=== PATIENT | female | born 1970 | race Caucasian/White ===

== ENCOUNTER 2019-02-22 15:34 | Inpatient (IN) | payer MEDICAID ==
[~2019-02-22] VITALS: Ht 152.4 cm; Wt 81.6 kg
[2019-02-22] MEDS: NACL 0.9% 1,000 ML IV SCH ×2 (04:55→18:57)
[2019-02-22 15:45] VITALS: BP 133/75
--- NOTE | 2019-02-22 15:51 | NUR ---
PT AMB TO BED 10.
--- NOTE | 2019-02-22 16:05 | NUR ---
C/O RUQ ABD PAIN RADIATING TO LLQ 03/14 X 2 DAYS, ACCOMPANIED BY NAUSEA. PT DENIES VOMITING/DIARRHEA. BOWEL SOUNDS PRESENT X4, ABD SOFT/TENDER TO PALPATION AND GUARDED. LBM 02/22/19 AND REGUALR PER PT. BED IN LOW POSITION, SIDE RAIL UP X1.
[2019-02-22] MEDS ORDERED: KETOROLAC 15 MG/ML VIAL IM ONE (16:30)
[2019-02-22] MEDS ORDERED: ONDANSETRON 4 MG/2 ML VIAL IVP ONE (16:30)
--- NOTE | 2019-02-22 16:30 | NUR ---
HAYLEY VANEGAS AT BEDSIDE
[2019-02-22 17:08] LABS: BASOPHILS % (AUTO) 0.2 % (0.0-2.0); EOSINOPHILS % (AUTO) 0.1 % (0.0-4.0); HEMATOCRIT 43.7 % (36-48); HEMOGLOBIN 14.5 g/dL (12.0-16.0); LYMPHOCYTES # (AUTO) 1.1 K/uL (2.5-16.5); LYMPHOCYTES % (AUTO) 11.2 % (20.5-51.1); MEAN CORPUSCULAR HEMOGLOBIN 29 pg (27-31); MEAN CORPUSCULAR HGB CONC 33 g/dL (33-37); MEAN CORPUSCULAR VOLUME 86.3 fL (80-94); MONOCYTES # (AUTO) 0.8 K/uL (0.8-1.0); MONOCYTES % (AUTO) 8.7 % (1.7-9.3); NEUTROPHILS # (AUTO) 7.6 K/uL (1.8-7.7); NEUTROPHILS % (AUTO) 79.8 % (42.2-75.2); PLATELET COUNT (AUTO) 236 K/uL (140-450); RED BLOOD CELL COUNT(AUTO) 5.07 MIL/uL (4.20-5.40); RED CELL DISTRIBUTION WIDTH 14.2 % (11.6-13.7); WHITE BLOOD COUNT (AUTO) 9.6 K/uL (4.8-10.8)
[2019-02-22 17:08] LABS: APPEARANCE,URINE CLEAR (CLEAR); BILIRUBIN,URINE NEGATIVE (NEGATIVE); BLOOD, URINE NEGATIVE (NEGATIVE); COLOR,URINE YELLOW (YELLOW); LEUKOCYTE ESTERASE ,URINE TRACE (NEGATIVE); NITRITE, URINE NEGATIVE (NEGATIVE); UGLUCOSE NEGATIVE (NEGATIVE)
[2019-02-22 17:15] LABS: RBC,URINE 0 /HPF (0-5)
[2019-02-22 17:23] LABS: ALBUMIN 3.8 g/dL (3.4-5.0); ANION GAP 10.8 (8-16); CARBON DIOXIDE 30.1 mmol/L (21-32); CREATININE 0.7 mg/dL (0.6-1.3); TOTAL BILIRUBIN 0.9 mg/dL (0.0-1.0)
[2019-02-22 17:28] LABS: POTASSIUM 2.9 mmol/L (3.5-5.1)
--- NOTE | 2019-02-22 17:30 | NUR ---
PT RESTING IN BED, TALKING WITH DAUGHTER. DENIES NEW NEEDS AT THIS TIME.
[2019-02-22] MEDS ORDERED: POTASSIUM CHLORIDE 40 MEQ, LIDOCAINE MPF 1% - 5 mL VIAL 25 MG in NACL 0.9% 250 ML IV ONE (18:30)
[2019-02-22] MEDS ORDERED: POTASSIUM CHLORIDE 10 MEQ TABER PO ONE (18:30)
[2019-02-22] MEDS ORDERED: LISI10TA11 PO (18:33)
[2019-02-22] MEDS ORDERED: NAPR-54 PO (18:33)
--- NOTE | 2019-02-22 19:16 | NUR ---
Patient will be admitted to care of DR. STARR. Admited to TELEMETRY. Will go to room 105A. Belongings list completed. Report to GAMAL BROWN.
--- NOTE | 2019-02-22 19:35 | NUR ---
RECEIVED FROM ER PER JIMENEZ AWAKE AND ALERT. ACCOMPANIED BY FAMILY MEMBERS. ABLE TO VERBALIZE WELL IN YI. PT. IS INDEPENDENT AND WALKS TO RESTROOM BY HERSELF SEEN BY ME. CALL LIGHT WITH IN REACH AND CARE PLANS FOR THE NIGHT DISCUSSED WITH HER. DX. OF CHOLECYSTITIS . NO PAIN COMPLAINT AT THIS TIME. WITH IVF SITE TO [facility] #20 INFUSING WITH NS BOLUS. RAPID RESPONSE EXPLAINED TO THEM . ENCOURAGED TO CALL FOR ANY HELP SHE MAY NEED. AFEBRILE.
[2019-02-22] MEDS ORDERED: MAGNESIUM HYDROXIDE 2400 MG/30 ML UDC PO PRN (19:55)
[2019-02-22] MEDS ORDERED: HYDROcodone/APAP 7.5/325 MG 1 TAB PO PRN (19:55)
[2019-02-22] MEDS ORDERED: FAMOTIDINE 20 MG/2 ML VIAL IV PRN (19:55)
[2019-02-22] MEDS ORDERED: ACETAMINOPHEN 325 MG TAB PO PRN (19:55)
[2019-02-22] MEDS ORDERED: MORPHINE SULFATE 2 MG/ML SYR IVP PRN (19:55)
[2019-02-22] MEDS ORDERED: DOCUSATE SODIUM 100 MG GELCAP PO PRN (19:55)
[2019-02-22] MEDS ORDERED: LORazepam 2 MG/ML VIAL IM/IVP PRN (19:55)
[2019-02-22] MEDS ORDERED: ONDANSETRON 4 MG/2 ML VIAL IM/IVP PRN (19:55)
[2019-02-22] MEDS ORDERED: BISACODYL 5 MG TABEC PO PRN (19:55)
[2019-02-22 20:11] VITALS: BP 141/87
[2019-02-22 20:58] LABS: PROTHROMBIN TIME 9.4 secs (10.8-13.4)
--- NOTE | 2019-02-22 21:28 | NUR ---
RESIDENT MD IN HERE AND SEEN PT. INFORMED PT. THAT HE HAS TALKED WITH CONSULT SURGEON TO SEE HER. WAITING FOR SURGEON. ON IVF K RIDER AT THIS TIME ORDERED. WATCHED PT. GO RESTROOM TO URINATE AGAIN. INDEPENDENT AND WALKS STRAIGHT. A/O X 4. ENCOURAGED TO CALL IF SHE NEEDS HELP. "OK"
[2019-02-22 22:38] LABS: CHOL/HDL RATIO 1.6 (1-4.5); FREE T4 (FREE THYROXINE) 1.1 ng/dL (0.76-1.46); MAGNESIUM 2.1 mg/dL (1.8-2.4); PHOSPHORUS 2.6 mg/dL (2.5-4.9); THYROID STIMULATING HORMONE 0.63 uIU/mL (0.34-3.74)
--- NOTE | 2019-02-22 22:39 | NUR ---
SURGEON YEVGENIY CAME IN TO SEE PT. AND WAS ABLE TO INFORM PT. OF STATUS. PROVIDED WITH CRACKERS AND APPLE JUICE AT THIS TIME. NO COMPLAINTS OF PAIN AT THIS TIME. CALL LIGHT WITH IN REACH.
[2019-02-22 22:50] LABS: BARBITURATE, URINE NEG. ng/ml (NEG <=200); BENZODIAZEPINE, URINE NEG. ng/mL (NEG <=200); CANNABINOID, URINE NEG. ng/mL (NEG <=50); COCAINE, URINE NEG. ng/mL (NEG <=300); OPIATE, URINE NEG. ng/mL (NEG <=2000); PHENCYCLIDINE SCREEN,URINE NEG. ng/mL (NEG <=25)
[2019-02-23 00:08] VITALS: BP 148/89
--- NOTE | 2019-02-23 03:00 | NUR ---
PT. SLEEPING. NO RESTLESSNESS NOTED. ABLE TO USE CALL LIGHT FOR ANY HELP SHE NEEDS. VERBALIZES WELL.
[2019-02-23] MEDS ORDERED: HYDR12.51 PO (04:20)
[2019-02-23] MEDS ORDERED: HYDROCHLOROTHIAZIDE 25 MG TAB PO SCH (05:00)
[2019-02-23] MEDS ORDERED: cefTRIAXone 1,000 MG VIAL ONE (05:18)
[2019-02-23] MEDS: NACL 0.9% 1,000 ML IV SCH ×3 (05:20→23:46)
[2019-02-23 05:33] VITALS: BP 146/86
[2019-02-23] MEDS: KETOROLAC 30 MG/ML VIAL IVP PRN ×2 (05:39→23:45)
--- NOTE | 2019-02-23 05:40 | NUR ---
BEEN SLEEPING WELL THIS SHIFT. WOKE UP AT THIS TIMIE AND REQUESTED FOR PAIN RELIEVER. MEDICATED WITH TORADOL 30 MG IVP ORDERED BY RESIDENT MD. ABLE TO VERBALIZE NEEDS WELL. PT. AT THIS TIME MEDICAL SURGICAL PT.
--- NOTE | 2019-02-23 06:29 | NUR ---
PT. SLEEPING AT T HIS TIME. WILL ENDORSE TO AM RN FOR CONTINUITY OF CARE.
[2019-02-23 07:13] LABS: ANION GAP 10.7 (8-16); CARBON DIOXIDE 28.2 mmol/L (21-32); CREATININE 0.7 mg/dL (0.6-1.3); POTASSIUM 3.9 mmol/L (3.5-5.1)
[2019-02-23 07:22] LABS: BASOPHILS % (AUTO) 0.3 % (0.0-2.0); EOSINOPHILS # (AUTO) 0.1 K/uL (0-0.4); EOSINOPHILS % (AUTO) 0.8 % (0.0-4.0); HEMATOCRIT 39.4 % (36-48); LYMPHOCYTES # (AUTO) 1.3 K/uL (2.5-16.5); LYMPHOCYTES % (AUTO) 17.2 % (20.5-51.1); MEAN CORPUSCULAR HEMOGLOBIN 29 pg (27-31); MEAN CORPUSCULAR HGB CONC 33 g/dL (33-37); MEAN CORPUSCULAR VOLUME 87.5 fL (80-94); MONOCYTES # (AUTO) 0.9 K/uL (0.8-1.0); MONOCYTES % (AUTO) 11.3 % (1.7-9.3); NEUTROPHILS # (AUTO) 5.5 K/uL (1.8-7.7); NEUTROPHILS % (AUTO) 70.4 % (42.2-75.2); PLATELET COUNT (AUTO) 201 K/uL (140-450); RED BLOOD CELL COUNT(AUTO) 4.51 MIL/uL (4.20-5.40); RED CELL DISTRIBUTION WIDTH 14.4 % (11.6-13.7); WHITE BLOOD COUNT (AUTO) 7.8 K/uL (4.8-10.8)
--- NOTE | 2019-02-23 07:40 | NUR ---
RECEIVED BEDSIDE REPORT FROM PAD EXTRACTOR TENDER RNLEANDRO. PATIENT IS RESTING IN BED, NO C/O PAIN AT THIS TIME. PATIENT IV IS INFUSING WELL TO LEFT AC 20 GAUGE CATHETER. NO SIGNS OF DISTRESS ON RA. BED LOW, CALL LIGHT IN REACH. WILL CONTINUE TO MONITOR.
[2019-02-23 08:00] VITALS: BP 101/63
[2019-02-23] MEDS: LISINOPRIL 10 MG TAB PO SCH (08:00)
--- NOTE | 2019-02-23 08:01 | NUR ---
PATIENT HAS BEEN SCREENED AND CATEGORIZED MODERATE NUTRITION RISK. PATIENT WILL BE SEEN WITHIN 3-5 DAYS OF ADMISSION. 02/25/[address]
[2019-02-23] MEDS: LACTOBACILLUS RHAMNOSUS GG 1 EACH CAP PO SCH (08:21)
--- NOTE | 2019-02-23 08:28 | NUR ---
ADMINISTERED SCHEDULED MEDICATIONS. HELD LISINOPRIL DUE TO BP 101/63. WILL RECHECK BP IN 4 HOURS AND GIVE IF NEEDED. PATIENT TOLERATED WELL. PATIENT STATES THAT PAIN IS MUCH LOWER NOW AFTER THE 0600 DOSE OF TORADOL. BED IS LOW, CALL LIGHT IN REACH. FAMILY AT BEDSIDE. WILL CONTINUE TO MONITOR.
--- NOTE | 2019-02-23 09:45 | NUR ---
PATIENT RESTING IN BED, PATIENT ATE A SMALL AMOUNT OF OATMEAL BUT EXPERIENCED ABDOMINAL DISCOMFORT AND STOPPED. FAMILY AT BEDSIDE. BED LOW, CALL LIGHT IN REACH. WILL CONTINUE TO MONITOR.
--- NOTE | 2019-02-23 12:15 | NUR ---
PATIENT RESTING IN BED, FAMILY AT BEDSIDE. IV INFUSING WELL TO LEFT AC 20 GAUGE. NO DISTRESS ON RA, BED LOW, CALL LIGHT IN REACH. PATIENT DOES HAVE 4/10 ABDOMINAL PAIN BUT CANNOT HAVE OPIOIDS FOR PENDING HIDA SCAN. PATIENT IS AWARE AND STATES THAT PAIN IS TOLERABLE AT THIS TIME.
--- NOTE | 2019-02-23 13:10 | NUR ---
PATIENT OFF UNIT FOR HIDA SCAN. ESCORTED BY SAMPLE WEAVER VIA WHEELCHAIR. WILL UPDATE WHEN PATIENT RETURNS TO UNIT.
[2019-02-23] MEDS ORDERED: MORPHINE SULFATE 2 MG/ML SYR ONE (14:29)
--- NOTE | 2019-02-23 14:32 | NUR ---
ADMINISTERED 2MG MORPHINE IV IN NUCLEAR MEDICINE FOR HIDA SCAN PURPOSE. PATIENT TOLERATED MEDICATION WELL. PATIENT REMAINED IN NUCLEAR MEDICINE. ADVISED ADMISSIONS REPRESENTATIVE KT TO CALL IF PATIENT EXPERIENCES ANY NAUSEA. NO C/O OF NAUSEA REPORTED WITHIN 10 MINUTES OF ADMINISTRATION.
[2019-02-23] MEDS ORDERED: MORPHINE SULFATE 2 MG/ML SYR IVP SCH (15:00)
--- NOTE | 2019-02-23 15:30 | NUR ---
PATIENT RETURNED TO UNIT, AMBULATED TO BED FROM WHEELCHAIR WITH STEADY GAIT. C/O MILD ABD PAIN IN RIGHT UPPER QUADRANT. PATIENT STATES PAIN IS TOLERABLE. BED IS LOW, CALL LIGHT IN REACH. IV IS RECONNECTED, PATIENT ABLE TO HAVE ICE CHIPS, BUT NO FOOD PENDING ABD CT SCAN WITH ORAL AND IV CONTRAST.
[2019-02-23 16:00] VITALS: BP 116/67
[2019-02-23 16:34] LABS: ALBUMIN 3.1 g/dL (3.4-5.0); ANION GAP 9.4 (8-16); CARBON DIOXIDE 29.3 mmol/L (21-32); CREATININE 0.7 mg/dL (0.6-1.3); POTASSIUM 3.7 mmol/L (3.5-5.1)
--- NOTE | 2019-02-23 17:15 | NUR ---
PATIENT RESTING IN BED WITH FAMILY AT BEDSIDE. BED LOW, CALL LIGHT IN REACH. PAIN PRESENT BUT TOLERABLE AT THIS TIME. OFFERED TORADOL, PATIENT WANTS TO WAIT. NO SIGNS OF DISTRESS.
--- NOTE | 2019-02-23 19:35 | NUR ---
ENDORSED PATIENT TO INTELLIGENCE MANAGER RN IN STABLE CONDITION.
--- NOTE | 2019-02-23 19:36 | NUR ---
REPORT TAKEN FROM AM RN. NUCLEAR MEDICINE CALLED FOR FAX SENT IN HERE : [facility] HEPATOBILIARY RESULT. SHOWED TO RESIDENT MD MARQUEZ . AWARE. WAITING FOR CT ABD./PELVIS PROCEDURE TO BE DONE. WILL CALL MD VUONG WHEN TEST AND RESULT IS IN FOR CT REQUESTED. DAUGHTER AT BEDSIDE AND NPO STATUS AT THIS TIME TOO RT CT ABD/PELVIS TEST. PT. AWARE OF IT. CALL LIGHT WITH IN REACH. NO SOB. DENIES PAIN AT THIS TIME. CARE PLANS FOR THE NIGHT DISCUSSED WITH THEM. IVF SITE INTACT AND NO INFILTRATION NOTED.
--- NOTE | 2019-02-23 22:03 | NUR ---
PT. AT THIS TIME TAKING ORAL CONTRAST FOR CT ABD/PELVIS PROVIDED BY REPAIR OPERATOR ARVIN AND EXPLAINED TO PT. REASON FOR IT. "OK" IVF SITE INTACT AND NO INFILTRATION. GOOD BLOOD RETURN.
--- NOTE | 2019-02-23 23:38 | NUR ---
SLEEPING. NO RESTLESSNESS NOTED.
--- NOTE | 2019-02-23 23:54 | NUR ---
PT. WOKE UP AND REQUESTED FOR PAIN RELIEVER. ABLE TO VERBALIZE NEEDS WELL. MEDICATED REQUESTED. PT. IVF SITE INTACT AND NO INFILTRATION S/S. CALL LIGHT WITH IN REACH.
[2019-02-23 23:56] VITALS: BP 140/80
--- NOTE | 2019-02-24 00:17 | NUR ---
PT. WHEELED OUT OF THE UNIT AT THIS TIME FOR CT SCAN ABD/PELVIS ORDERED. AWAKE AND ALERT.
--- NOTE | 2019-02-24 02:17 | NUR ---
CALLED MD/SURGEON YEVGENIY TO REPORT RE: CT ABDOMEN/PELVIS W/ CONTRAST RESULT HE REQUESTED FROM AM RN SOON RESULT OUT 2 X. NO ANSWER. INFORMED CHARGE NURSE ABOUT IT. WILL TRY AGAIN LATER. PT. SLEEPING AT THIS TIME.
--- NOTE | 2019-02-24 02:53 | NUR ---
CALLED DR VUONG AGAIN . NO ANSWER. CHARGE NURSE AWARE.
--- NOTE | 2019-02-24 03:25 | NUR ---
Checked on pt. sleeping well. No restlessness at this time. Call light with in reach.
--- NOTE | 2019-02-24 04:33 | NUR ---
PT. AWAKE AT THIS TIME AND ASSISTED TO RESTROOM TO URINATE. A/O X4. NO COMPLAINTS OF PAIN.
[2019-02-24 06:03] LABS: ANION GAP 12.1 (8-16); CARBON DIOXIDE 26.4 mmol/L (21-32); CREATININE 0.7 mg/dL (0.6-1.3); POTASSIUM 3.5 mmol/L (3.5-5.1)
[2019-02-24 06:13] LABS: MAGNESIUM 2.1 mg/dL (1.8-2.4); PHOSPHORUS 4.1 mg/dL (2.5-4.9)
[2019-02-24 07:00] LABS: PROTHROMBIN TIME 9.7 secs (10.8-13.4)
[2019-02-24 07:11] LABS: BASOPHILS % (AUTO) 0.2 % (0.0-2.0); EOSINOPHILS # (AUTO) 0.1 K/uL (0-0.4); EOSINOPHILS % (AUTO) 1.3 % (0.0-4.0); HEMATOCRIT 38.2 % (36-48); HEMOGLOBIN 12.6 g/dL (12.0-16.0); LYMPHOCYTES # (AUTO) 1.4 K/uL (2.5-16.5); LYMPHOCYTES % (AUTO) 23.3 % (20.5-51.1); MEAN CORPUSCULAR HEMOGLOBIN 29 pg (27-31); MEAN CORPUSCULAR HGB CONC 33 g/dL (33-37); MEAN CORPUSCULAR VOLUME 86.9 fL (80-94); MONOCYTES # (AUTO) 0.6 K/uL (0.8-1.0); MONOCYTES % (AUTO) 10.5 % (1.7-9.3); NEUTROPHILS # (AUTO) 3.9 K/uL (1.8-7.7); NEUTROPHILS % (AUTO) 64.7 % (42.2-75.2); PLATELET COUNT (AUTO) 202 K/uL (140-450); RED CELL DISTRIBUTION WIDTH 14.4 % (11.6-13.7); WHITE BLOOD COUNT (AUTO) 6.1 K/uL (4.8-10.8)
--- NOTE | 2019-02-24 07:24 | NUR ---
RECEIVED BEDSIDE REPORT FORM CHAPERONE RNLEANDRO. PATIENT SLEEPING, VISIBLE CHEST RISE, NO SIGNS OF DISTRESS ON RA. IV INFUSING AT 100 ML/HR TO LEFT AC 20 GAUGE CATHETER. BED IS LOW, CALL LIGHT IN REACH. WILL CONTINUE TO MONITOR.
--- NOTE | 2019-02-24 07:25 | NUR ---
ENDORSED TO THE NEXT RN FOR CONTINUITY OF CARE AWAKE AND ALERT. BEEN NPO SINCE MIDNIGHT.
[2019-02-24 08:00] VITALS: BP 116/75
[2019-02-24] MEDS: LISINOPRIL 10 MG TAB PO SCH (08:00)
--- NOTE | 2019-02-24 08:10 | NUR ---
VITALS STABLE, PRE-OP CHECKLIST COMPLETE. PATIENT ALERT AND ORIENTED, NO SIGNS OF DISTRESS ON RA. BP IS IN NORMAL RANGE AND HAS BEEN FOR 2 DAYS. PATIENT STATED SHE HAS HER BLOOD PRESSURE CHECKED REGULARLY AND HAS NEVER HAD HIGH BLOOD PRESSURE UNTIL THE DAY SHE SOUGHT TREATMENT FOR SEVER ABDOMINAL PAIN. NOW THAT PAIN IS CONTROL BLOOD PRESSURE IS WITHIN NORMAL LIMITS. HELD 0900 DOSE OF LISINOPRIL AND HYDROCHLOROTHIAZIDE. WILL INFORM DOCTOR THAT PATIENT HAS NOT HAD RECURRENT HIGH BLOOD PRESSURE. PATIENT TO SHOWER BEFORE SURGERY. PROVIDED TOWELS, GOWN AND SUPPLIES. ESCORTED PATIENT TO SHOWER. PATIENT AMBULATED WITH STEADY GAIT. WILL CONTINUE TO MONITOR.
[2019-02-24] MEDS: HYDROCHLOROTHIAZIDE 25 MG TAB PO SCH (08:46)
[2019-02-24] MEDS: LIDOCAINE 1% 500 MG/50 ML VIAL ONE ×2 (09:15→12:25)
[2019-02-24] MEDS: BUPIVACAINE-MPF 0.25% 30 ML VIAL INJ ONE ×2 (09:16→12:26)
[2019-02-24] MEDS: LACTOBACILLUS RHAMNOSUS GG 1 EACH CAP PO SCH (09:45)
--- NOTE | 2019-02-24 09:45 | NUR ---
PATIENT OFF UNIT FOR PROCEDURE. WILL RESUME CARE WHEN PATIENT RETURNS TO UNIT.
[2019-02-24] MEDS ORDERED: HYDROmorphone PFS 2 MG/ML SYR ONE (10:12)
[2019-02-24] MEDS ORDERED: fentaNYL 0.05 MG/ML VIAL ONE (10:12)
[2019-02-24] MEDS ORDERED: ONDANSETRON 4 MG/2 ML VIAL ONE (10:25)
[2019-02-24] MEDS ORDERED: ceFAZolin 1,000 MG VIAL ONE (10:25)
[2019-02-24] MEDS ORDERED: PHENYLEPHRINE 10 MG/ML VIAL ONE (10:25)
[2019-02-24] MEDS ORDERED: ROCURONIUM 50 MG/5 ML VIAL IV ONE (10:25)
[2019-02-24] MEDS ORDERED: GLYCOPYRROLATE 0.2 MG/ML VIAL ONE (10:25)
[2019-02-24] MEDS ORDERED: KETOROLAC 30 MG/ML VIAL ONE (10:25)
[2019-02-24] MEDS ORDERED: SUCCINYLCHOLINE CHLORIDE 200 MG/10 ML VIAL IVP ONE (10:25)
[2019-02-24] MEDS ORDERED: PROPOFOL 200 MG/20 ML VIAL IV ONE (10:25)
[2019-02-24] MEDS ORDERED: DESFLURANE 240 ML BTL INH ONE (10:25)
[2019-02-24] MEDS: NACL 0.9% 1,000 ML IV SCH ×2 (10:55→23:15)
[2019-02-24] MEDS ORDERED: HYDROmorphone 1 MG/ML AMP IVP PRN (12:20)
--- NOTE | 2019-02-24 13:31 | NUR ---
PATIENT BACK FROM OR. PATIENT IS STATUS POST LAPAROSCOPIC CHOLECYSTECTOMY. PATIENT VITALS ARE STABLE ON 2L O2 NC. FAMILY IS AT BEDSIDE. PATIENT DENIES PAIN AND IS BREATHING UNLABORED. BED IS LOW, CALL LIGHT IS IN REACH. WILL MONITOR CLOSELY.
[2019-02-24] MEDS ORDERED: CYCLOBENZAPRINE 10 MG TAB PO SCH (13:43)
--- NOTE | 2019-02-24 14:30 | NUR ---
VITALS REMAIN STABLE. BED LOW, CALL LIGHT IN REACH. PATIENT SATING 94% ON 2L O2 NC.
[2019-02-24 16:00] VITALS: BP 112/63
--- NOTE | 2019-02-24 16:00 | NUR ---
VITALS STABLE, PATIENT STILL DROWSY FROM OPERATION. PATIENT AWAKES EASILY. O2 SATURATION IS 93% ON 2L O2 NC. BED IS LOW, CALL LIGHT IN REACH, FAMILY AT BEDSIDE. WILL CONTINUE TO MONITOR.
[2019-02-24] MEDS: CYCLOBENZAPRINE 10 MG TAB PO SCH (18:32)
[2019-02-24] MEDS: PIPERACILLIN/TAZOBACTAM 3.375 GM in DEXTROSE 5% 50 ML IV SCH ×2 (18:33→23:15)
--- NOTE | 2019-02-24 18:45 | NUR ---
ADMINISTERED SCHEDULE MEDICATIONS, PATIENT TOLERATED WELL BED LOW, PATIENT AWAKE AND ORIENTED. BED LOW CALL LIGHT IN REACH NO SIGNS OF DISTRESS ON 2L O2 NC.
--- NOTE | 2019-02-24 19:29 | NUR ---
ENDORSED PATIENT TO TELEVISION PRODUCTION ASSISTANT RNLOY IN STABLE CONDITION.
--- NOTE | 2019-02-24 19:30 | NUR ---
RECEIVED REPORT FROM AM SHIFT RN TAWNYA FOR PT'S CONTINUITY OF CARE. PATIENT IS LYING DOWN IN BED, AWAKE, ALERT, ORIENTED X 4, FAMILY MEMBERS AT BEDSIDE, WITH NO SIGNS OF DISTRESS. PT IS ON 2L VIA NC, HAS LEFT AC 20G, DENIES PAIN AT THIS TIME. EXPLAINED TO PT LABEL CUTTER ROUTINE, PT AND FAMILY MEMBERS VERBALIZED UNDERSTANDING.
[2019-02-24] MEDS: SIMETHICONE 80 MG TAB.CHEW PO SCH (21:07)
--- NOTE | 2019-02-24 21:07 | NUR ---
ADMINISTERED SCHEDULED PO MEDICATION ORDERED. ASSISTED PT TO RESTROOM, PT TOLERATED MEDICATION AND ACTIVITY WELL. WILL CONTINUE TO MONITOR PT.
--- NOTE | 2019-02-24 22:53 | NUR ---
MADE ROUNDS. PATIENT LYING DOWN ASLEEP, WITH NO SIGNS OF DISTRESS. WILL CONTINUE TO MONITOR PT.
[2019-02-24] MEDS: KETOROLAC 30 MG/ML VIAL IVP PRN (23:13)
--- NOTE | 2019-02-24 23:15 | NUR ---
HUNG IV ABX, AND NEW NS AT 100ML/HR, ORDERED. PATIENT C/O ABD PAIN 01/11, ADMINISTERED IV PUSH PAIN MEDICATION ORDERED. PT TOLERATED THEM WELL. VS CHECKED AND CHARTED. WILL CONTINUE TO MONITOR PT.
[2019-02-25] VITALS: BP 118/69
--- NOTE | 2019-02-25 01:30 | NUR ---
MADE ROUNDS. PT LYING DOWN, ASLEEP, WITH NO SIGNS OF DISTRESS. WILL CONTINUE TO MONITOR PT.
--- NOTE | 2019-02-25 03:40 | NUR ---
MADE ROUNDS. PT LYING DOWN WITH NO SIGNS OF DISTRESS. WILL CONTINUE TO MONITOR PT.
[2019-02-25] MEDS: PIPERACILLIN/TAZOBACTAM 3.375 GM in DEXTROSE 5% 50 ML IV SCH ×2 (05:13→11:27)
--- NOTE | 2019-02-25 05:13 | NUR ---
ADMINISTERED IV ABX ORDERED. PT LYING DOWN, WOKE UP, DENIES ANY PAIN AT THIS TIME. WILL CONTINUE TO MONITOR PT.
--- NOTE | 2019-02-25 06:35 | NUR ---
PATIENT'S IV ALARM WAS ON, ASSISTED PT TO RESTROOM. PT TOLERATED ACTIVITY WELL. PT REPORTS OF HAVING FLATUS, AND DENIES ANY PAIN AT THIS TIME. GAVE APPLE JUICE REQUESTED. PT IS ON ROOM AIR, AND IN STABLE CONDITION. WILL ENDORSE TO AM SHIFT RN FOR PT'S CONTINUITY OF CARE.
[2019-02-25] MEDS: NACL 0.9% 1,000 ML IV SCH (06:55)
[2019-02-25] MEDS ORDERED: IBUP-2213 PO (06:59)
[2019-02-25] MEDS ORDERED: CIPR500T4 PO (06:59)
[2019-02-25] MEDS ORDERED: HYDR-5122 PO (06:59)
[2019-02-25] MEDS ORDERED: LACT10CA1 PO (06:59)
--- NOTE | 2019-02-25 07:30 | NUR ---
RECEIVED BEDSIDE REPORT FROM GAMAL GRANADO. PT STABLE, AWAKE, ALERT AND ORIENTED X4. NO SIGNS OF DISTRESS NOTED. DENIES PAIN OR SOB. NO REDNESS, SWELLING, OR INFLAMMATION NOTED ON IV SITE. CALL SAVAGE WITHIN REACH. BED IN LOWEST POSITION. SAFETY MEASURES IN PLACE. PLAN OF CARE REVIEWED.
[2019-02-25 07:32] LABS: BASOPHILS % (AUTO) 0.1 % (0.0-2.0); HEMATOCRIT 34.6 % (36-48); HEMOGLOBIN 11.3 g/dL (12.0-16.0); LYMPHOCYTES # (AUTO) 0.7 K/uL (2.5-16.5); LYMPHOCYTES % (AUTO) 8.4 % (20.5-51.1); MEAN CORPUSCULAR HEMOGLOBIN 28 pg (27-31); MEAN CORPUSCULAR HGB CONC 33 g/dL (33-37); MEAN CORPUSCULAR VOLUME 86.9 fL (80-94); MONOCYTES # (AUTO) 0.7 K/uL (0.8-1.0); NEUTROPHILS # (AUTO) 7.3 K/uL (1.8-7.7); NEUTROPHILS % (AUTO) 83.5 % (42.2-75.2); PLATELET COUNT (AUTO) 210 K/uL (140-450); RED BLOOD CELL COUNT(AUTO) 3.98 MIL/uL (4.20-5.40); RED CELL DISTRIBUTION WIDTH 14.3 % (11.6-13.7); WHITE BLOOD COUNT (AUTO) 8.7 K/uL (4.8-10.8)
[2019-02-25 08:00] VITALS: BP 138/84
[2019-02-25 08:03] LABS: ANION GAP 12.6 (8-16); CARBON DIOXIDE 27.2 mmol/L (21-32); CREATININE 0.7 mg/dL (0.6-1.3); POTASSIUM 3.8 mmol/L (3.5-5.1)
[2019-02-25 08:20] LABS: MAGNESIUM 2.1 mg/dL (1.8-2.4); PHOSPHORUS 3.5 mg/dL (2.5-4.9)
[2019-02-25] MEDS: LISINOPRIL 10 MG TAB PO SCH (08:58)
[2019-02-25] MEDS: HYDROCHLOROTHIAZIDE 25 MG TAB PO SCH (08:59)
[2019-02-25] MEDS: SIMETHICONE 80 MG TAB.CHEW PO SCH (09:00)
[2019-02-25] MEDS: CYCLOBENZAPRINE 10 MG TAB PO SCH (09:03)
[2019-02-25] MEDS: LACTOBACILLUS RHAMNOSUS GG 1 EACH CAP PO SCH (09:03)
[2019-02-25] MEDS: KETOROLAC 30 MG/ML VIAL IVP PRN (09:04)
--- NOTE | 2019-02-25 09:10 | NUR ---
CHECKED BP, 139/79, HR 79. ADMINISTERED ALL SCHEDULED MEDICATIONS AND PRN TORADOL FOR C/O 6/10 ABDOMINAL PAIN, PT TOLERATED WELL. NO OTHER NEEDS AT THIS TIME. FAMILY AT THE BEDSIDE. INSTRUCTED PT TO AMBULATE IN THE HALLWAYS PER TOLERANCE, PT VERBALIZED UNDERSTANDING. WILL CONTINUE TO MONITOR.
--- NOTE | 2019-02-25 11:29 | NUR ---
ADMINISTERED SCHEDULED ZOSYN, PT TOLERATED WELL. NO OTHER NEEDS AT THIS TIME. FAMILY AT THE BEDSIDE.
--- NOTE | 2019-02-25 13:20 | NUR ---
PT STABLE, AMBULATING IN THE HALLWAYS WITH STEADY GAIT. PT REPORTS PASSING GAS BUT NO BOWEL MOVEMENT. DR FINLEY AWARE.
--- NOTE | 2019-02-25 15:20 | NUR ---
PT STABLE, RESTING IN BED. FAMILY AT THE BEDSIDE. WILL CONTINUE TO MONITOR.
--- NOTE | 2019-02-25 16:40 | NUR ---
D/C INSTRUCTIONS, PAPERWORK, AND PRESCRIPTION GIVEN. PT VERBALIZED UNDERSTANDING. QUESTIONS AND CONCERNS WERE ADDRESSED. D/C IV, CATHETER TIP INTACT, BLEEDING CONTROLLED. PT STABLE, AAOX4, COMMUNICATES APPROPRIATELY WITH STAFF, AMBULATES IN THE HALLWAY WITH STEADY GAIT. DISCHARGE PHOTOGRAPH OF SURGICAL INCISION TAKEN, PNEUMONIA VACCINE AND FLU VACCINE N/A. PT TOOK ALL BELONGINGS. ESCORTED PT TO THE LOBBY. PT PICKED UP BY SISTER TO BE TAKEN BACK HOME.
== END 2019-02-25 16:40 | disposition home or self-care (01) | DRG 263 ==
LOC: MED 15:34 → MTU 18:27
PROVIDERS: ADMIT General Practice; ATTEND General Practice
PROC: 0FN44ZZ Release Gallbladder, Percutaneous Endoscopic Approach (ICD-10-PCS; 2019-02-24)
PROC: 0FT44ZZ Resection of Gallbladder, Percutaneous Endoscopic Approach (ICD-10-PCS; principal; 2019-02-24 10:00)
DX: K80.13 Calculus of gallbladder with acute and chronic cholecystitis with obstruction (principal); E44.0 Moderate protein-calorie malnutrition; N39.0 Urinary tract infection, site not specified; K82.1 Hydrops of gallbladder; E78.5 Hyperlipidemia, unspecified; I10 Essential (primary) hypertension; E87.6 Hypokalemia; M17.0 Bilateral primary osteoarthritis of knee; K66.0 Peritoneal adhesions (postprocedural) (postinfection); Z68.35 Body mass index [BMI] 35.0-35.9, adult; Z79.899 Other long term (current) drug therapy
CPT/HCPCS: 36415; 71045; 76705; 78445; 80048; 80053; 80305; 81001; 82140; 82150; 82374; 83036; 83605; 83690; 83735; 83880; 84100; 84439; 84443; 84484; 85025; 85610; 85730; 87070; 87075; 87081; 87086; 87205; 93005; 96374; 96375; 99285; J0330; J0690; J0696; J1170; J1885; J2001; J2270; J2370; J2405; J2543; J2704; J3010; J3480; J3490; J7030; J7060; Q0092; Q9967